=== PATIENT | female | born 1995 ===

== ENCOUNTER 2017-06-25 00:30 | Emergency (ER) | payer BC ==
[2017-06-25 01:28] VITALS: BP 120/63; PULSE 107; RESP 16; TEMP 98.3; O2SAT 100
[2017-06-25 03:27] LABS: BASO # 0.1 K/uL (0.0-0.2); BASO % 0.6 % (0.0-2.0); EOS # 0.2 K/uL (0.0-0.7); EOS % 1.2 % (0.0-4.0); HEMOGLOBIN 12.6 g/dL (12.0-16.0); LYMPH % 15.1 % (20.0-40.0); MEAN CELL VOLUME 85.2 fl (81.0-99.0); MEAN CORPUSCULAR HEMOGLOBIN 28.9 pg (27.0-31.0); MEAN PLATELET VOLUME 9.9 fl (7.2-11.7); MONO # 1.1 K/uL (0.0-0.8); MONO % 8.2 % (0.0-10.0); NEUT # 9.7 K/uL (1.8-7.0); NEUT % 74.9 % (50.0-75.0); RBC 4.37 Mil/uL (3.80-5.20); RED CELL DISTRIBUTION WIDTH 13.4 % (11.5-14.5)
[2017-06-25 03:31] LABS: SQUAMOUS EPITHIAL 1 /hpf (0-5); URINE BILIRUBIN NEGATIVE (NEGATIVE); URINE BLOOD NEGATIVE (NEGATIVE); URINE CLARITY CLEAR (Clear); URINE COLOR STRAW (YELLOW); URINE GLUCOSE (UA) NEG (Normal); URINE LEUKOCYTE ESTERASE NEG Leu/uL (Negative); URINE PROTEIN NEGATIVE (NEGATIVE); URINE UROBILINOGEN 0.2-1.0 mg/dL (0.2-1.0)
[2017-06-25 03:43] LABS: ALB/GLOB RATIO 1.1 (1.0-2.1); ALBUMIN 4.2 g/dL (3.5-5.0); ALT/SGPT 35 U/L (9-52); AST/SGOT 21 U/L (14-36); BLOOD UREA NITROGEN 15 mg/dl (7-17); CALCIUM 9.5 mg/dL (8.4-10.2); GFR AFRICAN-AMERICAN > 60; GFR NON-AFRICAN AMERICAN > 60; LIPASE 59 U/L (23-300)
--- NOTE | 2017-06-25 03:51 | ED PDOC ---
HPI: General Adult Time Seen by Provider: 06/25/17 02:42 Chief Complaint (Nursing): Female Genitourinary Chief Complaint (Provider): Female Genitourinary History Per: Patient History/Exam Limitations: no limitations Current Symptoms Are (Timing): Still Present Additional Complaint(s): 22 year old female presents to the emergency department with a complaint of a lower abdominal pain x5 days. Reports since 06/20/2017, pain has been consistent with abdominal pain, increasing stool frequencies, and normal appetite. Denies nausea, vomiting, diarrhea, fever, vaginal discharge, sexually active, or any urinary symptoms. Of note, patient stated her pain was a 9/10 when she came here but after passing large amount of gas the pain is now 3/10. Past Medical History Reviewed: Historical Data, Nursing Documentation, Vital Signs Vital Signs: Last Vital Signs Temp 98.3 F 06/25/17 01:24 Pulse 107 H 06/25/17 01:24 Resp 16 06/25/17 01:24 BP 120/63 06/25/17 01:24 Pulse Ox 100 06/25/17 06:52 - Medical History PMH: No Chronic Diseases - Surgical History Surgical History: No Surg Hx - Family History Family History: States: Unknown Family Hx - Social History Current smoker - smoking cessation education provided: No Alcohol: None Drugs: Denies - Home Medications Home Medications: Ambulatory Orders Medication Instructions Recorded Dicyclomine [Bentyl] 20 mg PO Q12 PRN #20 tab 06/25/17 Naproxen [Naprosyn] 500 mg PO Q12 #14 tab 06/25/17 - Allergies Allergies/Adverse Reactions: Allergies Allergy/AdvReac Type Severity Reaction Status Date / Time No Known Allergies Allergy Verified 06/25/17 01:28 Review of Systems ROS Statement: Except As Marked, All Systems Reviewed And Found Negative (As per HPI, otherwise negative) Constitutional: Positive for: Other (normal appetite). Negative for: Fever Gastrointestinal: Positive for: Abdominal Pain (lower region), Other ( increasing stool frequency). Negative for: Nausea, Vomiting, Diarrhea Genitourinary Female: Negative for: Dysuria, Frequency, Incontinence, Hematuria , Vaginal Discharge, Other (sexually active) Physical Exam - Reviewed Nursing Documentation Reviewed: Yes Vital Signs Reviewed: Yes - Physical Exam Appears: Positive for: No Acute Distress Head Exam: Positive for: NORMAL INSPECTION Skin: Positive for: Normal Color, Warm, Dry Cardiovascular/Chest: Positive for: Regular Rate, Rhythm. Negative for: Murmur Respiratory: Positive for: Normal Breath Sounds. Negative for: Accessory Muscle Use, Respiratory Distress Gastrointestinal/Abdominal: Positive for: Normal Exam, Soft. Negative for: Tenderness Extremity: Positive for: Normal ROM. Negative for: Pedal Edema Neurologic/Psych: Positive for: Alert, Oriented (x3) - Laboratory Results Result Diagrams: 06/25/17 03:24 06/25/17 03:24 - ECG O2 Sat by Pulse Oximetry: 100 (RA) Pulse Ox Interpretation: Normal Medical Decision Making Medical Decision Making: Time: 030 Initial Impression: Lower abdominal pain Initial Plan: --CMP --Lipase --urine preg and dip --CBC w. diff --urinalysis --Reevaluation Time: 034 --Labs were overall normal with elevated WBC count. --Abd & pelvis IV contrast CT Time: 06 --Abd & pelvis CT FINDINGS: Lung bases: Unremarkable. No mass. No consolidation. ABDOMEN: Liver: Unremarkable. No mass. Gallbladder and bile ducts: Contracted gallbladder with gallbladder wall prominence. Pancreas: Unremarkable. No mass. No ductal dilation. Spleen: Unremarkable. No splenomegaly. Adrenals: Unremarkable. No mass. Kidneys and ureters: Unremarkable. No solid mass. No hydronephrosis. Stomach and bowel: There are nonspecific fluid filled stomach, small bowel loops. These findings can represent ileus versus gastroenteritis/enteritis versus slow transit versus peristalsis. Moderate amount of stool in the colon with left lower quadrant colonic thickening and mild infiltration of the pelvic mesenteric and paracolic fat. Correlation with clinical data is recommended if nonspecific versus stool related colitis as clinically suspected. No obstruction. Appendix: Possible normal appendix seen image 51 lateral right pelvis just below SI joint possibly connects to the cecum. PELVIS: Bladder: There is nonspecific bladder wall thickening. This may be related to incomplete distention. Reproductive: There is enhancing involuting right ovarian dominant follicle measuring 1.7 cm seen on image 64 series 2. Uterus is seen. Distention of endometrial canal. ABDOMEN and PELVIS: Intraperitoneal space: Free pelvic fluid. No free air. Bones/joints: There is right pubic rami irregular heterogeneous lucent lesion with central sclerotic density. No acute fracture. No dislocation. Soft tissues: Unremarkable. Vasculature: Unremarkable. No abdominal aortic aneurysm. Lymph nodes: Unremarkable. No enlarged lymph nodes. IMPRESSION: 1. Free pelvic fluid. 2. There is enhancing involuting right ovarian dominant follicle measuring 1.7 cm seen on image 64 series 2. 3.There is incidental right pubic rami irregular heterogeneous lucent lesion with central sclerotic density. No fracture is seen. This is a mixed lytic and sclerotic lesion. This could potentially predispose the patient to a pathologic fracture. Statistically this can represent fibrous dysplasia. Correlation with internal medicine evaluation and further workup or followup as recommended by patient's clinical data Time: 650 --Patient is medically stable for discharge and will be given Rx for Bentyl 20 mg and Naprosyn 500 mg. Clinical Impression: Abdominal pain and ovarian cyst Scribe Attestation: Documented by Ita Hays acting as a scribe for Rosas Blue MD. Scribe Attestation: All medical record entries made by the Scribe were at my direction and personally dictated by me. I have reviewed the chart and agree that the record accurately reflects my personal performance of the history, physical exam, medical decision making, and the department course for this patient. I have also personally directed, reviewed, and agree with the discharge instructions and disposition. Disposition - Clinical Impression Clinical Impression: Abdominal pain, Ovarian cyst - Patient ED Disposition Is Patient to be Admitted: No Counseled Patient/Family Regarding: Diagnosis - Disposition Disposition: Routine/Home Disposition Time: 06:51 Condition: STABLE Prescriptions: Dicyclomine [Bentyl] 20 mg PO Q12 PRN #20 tab PRN Reason: abdominal pain Naproxen [Naprosyn] 500 mg PO Q12 #14 tab Instructions: Ovarian Cysts Forms: [employer] ([place])
[2017-06-25] MEDS ORDERED: Iohexol 300 100 ML IJ ONE (05:26)
--- NOTE | 2017-06-25 06:47 | CT ---
EXAM: CT Abdomen and Pelvis With Intravenous Contrast CLINICAL HISTORY: 22 years old, female; Pain; Other: Pelvic; Additional info: Lower abdominal pain TECHNIQUE: Axial computed tomography images of the abdomen and pelvis with intravenous contrast. All CT scans at this facility use one or more dose reduction techniques, viz.: automated exposure control; ma/kV adjustment per patient size (including targeted exams where dose is matched to indication; i.e. head); or iterative reconstruction technique. 524 images are submitted.Sagittal , axial and coronal MPR reformatted images are submitted. CONTRAST: 95 mL of omnipaque 300 administered intravenously. COMPARISON: No relevant prior studies available. FINDINGS: Lung bases: Unremarkable. No mass. No consolidation. ABDOMEN: Liver: Unremarkable. No mass. Gallbladder and bile ducts: Contracted gallbladder with gallbladder wall prominence. Pancreas: Unremarkable. No mass. No ductal dilation. Spleen: Unremarkable. No splenomegaly. Adrenals: Unremarkable. No mass. Kidneys and ureters: Unremarkable. No solid mass. No hydronephrosis. Stomach and bowel: There are nonspecific fluid filled stomach, small bowel loops. These findings can represent ileus versus gastroenteritis/enteritis versus slow transit versus peristalsis. Moderate amount of stool in the colon with left lower quadrant colonic thickening and mild infiltration of the pelvic mesenteric and paracolic fat. Correlation with clinical data is recommended if nonspecific versus stool related colitis as clinically suspected. No obstruction. Appendix: Possible normal appendix seen image 51 lateral right pelvis just below SI joint possibly connects to the cecum. PELVIS: Bladder: There is nonspecific bladder wall thickening. This may be related to incomplete distention. Reproductive: There is enhancing involuting right ovarian dominant follicle measuring 1.7 cm seen on image 64 series 2. Uterus is seen. Distention of endometrial canal. ABDOMEN and PELVIS: Intraperitoneal space: Free pelvic fluid. No free air. Bones/joints: There is right pubic rami irregular heterogeneous lucent lesion with central sclerotic density. No acute fracture. No dislocation. Soft tissues: Unremarkable. Vasculature: Unremarkable. No abdominal aortic aneurysm. Lymph nodes: Unremarkable. No enlarged lymph nodes. IMPRESSION: 1. Free pelvic fluid. 2. There is enhancing involuting right ovarian dominant follicle measuring 1.7 cm seen on image 64 series 2. 3.There is incidental right pubic rami irregular heterogeneous lucent lesion with central sclerotic density. No fracture is seen. This is a mixed lytic and sclerotic lesion. This could potentially predispose the patient to a pathologic fracture. Statistically this can represent fibrous dysplasia. Correlation with internal medicine evaluation and further workup or followup as recommended by patient's clinical data.
== END 2017-06-25 07:07 | disposition home or self-care (01) ==
LOC: H.ER 00:30
DX: N83.202 Unspecified ovarian cyst, left side (principal); D72.829 Elevated white blood cell count, unspecified
CPT/HCPCS: 74177; 80053; 81003; 81025; 83690; 85025; 99283; Q9967